=== PATIENT | female | born 1985 | race Two or more races ===

== ENCOUNTER 2024-10-30 18:03 | Emergency (ER) | payer MEDICAID, SELFPAY ==
[2024-10-30 18:04] VITALS: BMI 30.7
--- NOTE | 2024-10-30 18:09 | EKG_ITS ---
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
[2024-10-30 19:00] VITALS: BP 119/78; PULSE 93; RESP 18; TEMP 37.1; O2SAT 97
--- NOTE | 2024-10-30 19:20 | XR_ITS ---
Examination: PA lateral chest 2 views Technique: Upright PA lateral chest 2 views Exam date and time: October 30 2024 Indications: Chest pain today. Findings: Normal heart size Lungs are clear. The osseous structures are intact Impression: No active disease
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
== END 2024-10-30 21:45 | disposition home or self-care (01) ==
PROVIDERS: Emergency Provider Emergency Medicine; PCP Nurse Practitioner Family
DX: S20.219A Contusion of unspecified front wall of thorax, initial encounter (principal); F41.9 Anxiety disorder, unspecified; Y04.0XXA Assault by unarmed brawl or fight, initial encounter
CPT/HCPCS: 71046; 93005; 99283

== ENCOUNTER 2025-07-26 01:20 | Emergency (ER) | payer MEDICAID, SELFPAY ==
[2025-07-26 01:21] VITALS: BMI 31.4
[2025-07-26 01:27] VITALS: BP 116/74; PULSE 90; RESP 18; TEMP 36.6; O2SAT 98
--- NOTE | 2025-07-26 01:40 | XR_ITS ---
Examination: Complete OB ultrasound, less than 14 weeks, transabdominal Date and time of exam: July 26, 2025, 0207 hours INDICATIONS: Dizziness pelvic pain today Technique: Obstetrical ultrasound images less than 14 weeks performed via transabdominal imaging Findings: Uterus 13.1 cm CRL 6.8 cm corresponds to 13 weeks 0 days gestational age Cardiac motion 148 bpm Suspicious for abruption of the placenta posteriorly near the cervix measuring up to 4 mm in thickness Ovaries obscured by bowel gas Impression: Viable intrauterine gestation 13 weeks 0 days Suspicious for early placental abruption, recommend short-term follow-up pelvic sonography
--- NOTE | 2025-07-26 01:40 | PD.EDRME ---
Rapid Medical Screening Exam RME Arrival date/time: 07/26/25 01:20 This is a case of 40-year-old female with no medical history came in in the emergency room due to dizziness today patient is 13 weeks 8 para 7 1 miscarriage no abdominal pain no vaginal bleeding no vaginal discharge no nausea no vomitING Chief Complaint: Dizziness Time Seen by Provider: 07/26/25 01:22 Vital signs: Vital Signs Temperature 98 F 07/26/25 01:27 Pulse Rate 90 07/26/25 01:27 Respiratory Rate 18 07/26/25 01:27 Blood Pressure 116/74 07/26/25 01:27 Pulse Oximetry (%) 98 07/26/25 01:27 Oxygen Delivery Method Room Air 07/26/25 01:27 Exam: Abdominal exam no guarding no rebound no rigidity no tenderness Clinical Impression: Dizziness IN PREGANNCY
[2025-07-26 01:49] LABS: Collection Type, Urine Voided
[2025-07-26 01:56] LABS: Bacteria,Urine Rare; Bilirubin,Urine Negative (Negative); Blood,Urine Negative (Negative); Clarity,Urine Clear (Clear/Hazy); Color,Urine Colorless (Lt Yel-Yel); Glucose, Urine Negative (Negative); Ketones,Urine Negative (Negative); Leukocyte Esterase,Urine Negative (Negative); Nitrite,Urine Negative (Negative); PH,Urine 6.5 (5.0-7.0); Protein,Urine Negative (Neg - Trace); RBC,Urine 1 /hpf (0-3); Specific Gravity,Urine 1.003 (1.001-1.035); Squamous Epithelial Cell,Urine 1 /hpf (0-5); Urobilinogen,Urine Negative mg/dL (0.0-1.0); WBC,Urine < 1 /hpf (0-5)
[2025-07-26 02:10] LABS: Basophils # (Auto) 0.0 Thou/mm3 (0.0-0.2); Basophils % (Auto) 0 % (0-2.5); Eosinophils # (Auto) 0.1 Thou/mm3 (0.0-0.5); Eosinophils % (Auto) 1 % (0-10); Hematocrit 34.8 % (36.0-46.0); Hemoglobin 11.6 g/dL (12.0-16.0); Immature Granulocytes Auto 0.03 Thou/mm3 (0.00-0.00); Lymphocytes # (Auto) 2.2 Thou/mm3 (1.0-4.8); Lymphocytes % (Auto) 30 % (10-50); Mean Corpuscular HGB Conc 33.3 g/dl (31.0-37.0); Mean Corpuscular Hemoglobin 29.7 pg (25.0-35.0); Mean Corpuscular Volume 89 fL (80-100); Monocytes # (Auto) 0.5 Thou/mm3 (0.0-0.8); Monocytes % (Auto) 7 % (0-12); Neutrophils # (Auto) 4.6 Thou/mm3 (1.8-7.7); Neutrophils % (Auto) 61 % (37-80); Nucleated Red Blood Cell # 0.00 Thou/mm3 (0.00-0.00); Nucleated Red Blood Cell % 0 /100 WBC (0); Platelet Count 231 Thou/mm3 (140-440); RDW Standard Deviation 46.7 fL (36.4-46.3); Red Blood Count 3.91 Miln/mm3 (4.00-5.20); White Blood Count 7.5 Thou/mm3 (3.6-11.0)
[2025-07-26 02:31] LABS: Alanine Aminotransferase 20 U/L (10-49); Albumin, Serum 4.5 gm/dL (3.5-5.0); Albumin/Globulin Ratio 1.9 (1.2-2.2); Alkaline Phosphatase 90 U/L (46-116); Anion Gap 9 (7-16); Aspartate Amino Transferase 22 U/L (0-34); BUN/Creatinine Ratio 22 Ratio (12-20); Bilirubin,Total 0.2 mg/dL (0.3-1.2); Blood Urea Nitrogen 11 mg/dL (9-23); Calcium 9.5 mg/dL (8.3-10.6); Calcium (Corrected) 9.5 mg/dL (8.5-10.1); Carbon Dioxide 25.2 mMol/L (20.0-31.0); Chloride 107 mMol/L (98-107); Creatinine (Component) 0.5 mg/dL (0.6-1.3); Estimated Creatinine Clearance 160.1 mL/min (>60); Globulin 2.4 gm/dL (2.3-3.5); Glucose 120 mg/dL (74-106); Osmolality,Calculated 281 (275-295); Potassium 4.3 mMol/L (3.4-5.1); Sodium 141 mMol/L (136-145); Total Protein 6.9 gm/dL (5.7-8.2); eGFR > 60 See Note
[2025-07-26] MEDS: SODIUM CHLORIDE 0.9% 1000 ML 1,000 ML 999 ML IV (02:35)
[2025-07-26 02:36] VITALS: BP 102/69; PULSE 81; RESP 19; O2SAT 99
[2025-07-26 03:00] LABS: Beta HCG,Quantitative 7831 mIU/mL (<5.0)
--- NOTE | 2025-07-26 04:00 | PRELIM_ITS ---
Obstetric ultrasound (transabdominal). July 26, 2025 0207 hours Clinical history: vaginal bleeding Comparison: None Findings: Uterus is 13.1 x 11.8 x 5.3 cm. Intrauterine gestation is present, of concern for possible abruption of the inferior margin of the placenta near the cervix. The ovaries are not identified. pole is 6.8 cm long consistent with 13- weeks 0-day gestational age. heart rate is 148 bpm. The yolk sac is not demonstrated. No free fluid. Impression: Single live intrauterine gestation. Suspicious for abruption of the inferior placental margin. Discussion Details: Results verbally communicated to : Dr Viera at 03:49 AM 07/26/2025 Report Electronically Signed By: Grover Acevedo 07/26/2025 4:00:21 AM [EST]
--- NOTE | 2025-07-26 04:46 | EDNOTE_ITS ---
ED Dizzyness RME/HPI General Chief Complaint: Dizziness Stated Complaint: 13 WKS PREG DIZZINESS Time Seen by Provider: 07/26/25 01:22 Arrival date/time: 07/26/25 01:20 Limitations: no limitations RME / HPI RME / HPI Narrative: 07/26/25 01:20 This is a case of 40-year-old female with no medical history came in in the emergency room due to dizziness today patient is 13 weeks 8 para 7 1 miscarriage no abdominal pain no vaginal bleeding no vaginal discharge no nausea no vomitING ------ Dr. Draper's Main ED Evaluation: 40yo female A1 who is ~13 weeks gestation presents to the ED for a chief complaint of lightheadedness x 2 days. Patient states she has not been wanting to eat for the last 2 days, which is unusual for her. She notes feeling lightheaded, which she has not experienced with any of her pregnancies and was concerned, so she came in for evaluation. Patient denies any abdominal pain, vaginal bleeding/discharge, chest pain, palpitations, shortness of breath, or any other associated symptoms. NKA. WEB MANAGER: [place] Related Data Previous Rx's ?Medication ?Instructions ?Recorded dicyclomine 20 mg tablet 20 mg PO QID PRN abdominal p ain 02/23/24 #14 tabs ondansetron 4 mg disintegrating 4 mg PO TID PRN nausea and 02/23/24 tablet vomiting #14 tabs Allergies Allergy/AdvReac Type Severity Reaction Status Date / Time No Known Allergies Allergy Verified 07/26/25 01:24 Review of Systems Review of Systems Systems Reviewed: All systems reviewed, normal except as documented Past Medical History Past Medical History CARDIAC: Positive Hypotension; Negative Congestive Heart Failure RESPIRATORY: Negative Chronic Obstructive Pulmonary Disease (COPD) GENITOURINARY: Negative Renal Disease ENDOCRINE: Negative Diabetes Mellitus Type 1 or Diabetes Mellitus Type 2 PSYCHO/SOCIAL: Positive Anxiety Social History SMOKING STATUS: Never smoker ED Exam General Limitations: Present no limitations General appearance: Present alert, in no apparent distress and other (is able to sit up) Head Head exam: Present atraumatic Eye Eye exam: Present normal appearance, PERRL and EOMI ENT ENT exam: Present normal exam, normal oropharynx and mucous membranes moist Neck Neck exam: Present normal inspection, full ROM and trachea midline Chest Chest inspection: Present normal inspection and symmetric chest wall rise Respiratory Respiratory exam: Present normal lung sounds bilaterally Cardiovascular Cardiovascular exam: Present regular rate, normal rhythm and normal heart sounds Abdominal Exam Abdominal exam: Present soft and normal bowel sounds Extremities Exam Extremities exam: Present normal inspection and full ROM Back Exam Back exam: Present normal inspection and full ROM Neurological Exam Neurological exam: Present alert, oriented X3, CN II-XII intact and normal gait; Absent motor sensory deficit Expanded Neurological Exam Patient oriented to: Present person, place and time Cerebellar function: Normal: finger to nose Psychiatric Psychiatric exam: Present normal affect and normal mood Skin Skin exam: Present warm, dry, intact and normal color Course Quality Measures none Orders Category Date Time Status US OB <= 14 weeks fetus Stat Exams 07/26/25 01:40 Taken ABO/RH Type Stat Lab 07/26/25 01:57 Completed Beta HCG,Quantitative Stat Lab 07/26/25 01:57 Completed CBC Stat Lab 07/26/25 01:57 Completed CMP [Comprehensive Metabolic Panel] Stat Lab 07/26/25 01:57 Completed Urinalysis Stat Lab 07/26/25 01:35 Completed Sodium Chloride 0.9% 1000 ml [Ns] 1,000 ml Med 07/26/25 01:40 Discontinued IV 999 mls/hr Vital Signs Vital signs: Vital Signs Temperature 98 F 07/26/25 01:27 Pulse Rate 90 07/26/25 01:27 Respiratory Rate 18 07/26/25 01:27 Blood Pressure 116/74 07/26/25 01:27 Pulse Oximetry (%) 98 07/26/25 01:27 Oxygen Delivery Method Room Air 07/26/25 01:27 Dizziness MDM Narrative MDM Narrative:: Scribe Attestation: 07/26/25 Katty Barney am scribing for and in the presence of Dr. Draper. Patient data External records reviewed:: [facility] previous records (Per chart review, patient was seen here on 10/30/24 for anxiety.) Clinical information provided by:: patient Social determinants that could affect healthcare access:: none Patient has the following chronic illnesses:: none How is presenting disease/condition affected by chronic disease/condition?: no chronic disease Evaluation data The following diagnostics were reviewed and interpreted by me:: lab results and radiology exam(s) Lab and/or radiology exams considered but not ordered:: none Interpretation Summary: WBC normal, HnH 11.6/34.8, CMP normal, HCG 7831, UA unremarkable. Telerad Preliminary Report Draft Patient: LETICIA CRABTREE Record#: [id number] Birthdate: 1985 Age/Sex: 40 / F [facility]: Ordering Physician: Date of Service: Procedure(s): Accession Number(s): cc: ~ Obstetric ultrasound (transabdominal). July 26, 2025 0207 hours Clinical history: vaginal bleeding Comparison: None Findings: Uterus is 13.1 x 11.8 x 5.3 cm. Intrauterine gestation is present, of concern for possible abruption of the inferior margin of the placenta near the cervix. The ovaries are not identified. pole is 6.8 cm long consistent with 13- weeks 0-day gestational age. heart rate is 148 bpm. The yolk sac is not demonstrated. No free fluid. Impression: Single live intrauterine gestation. Suspicious for abruption of the inferior placental margin. Discussion Details: Results verbally communicated to : Dr Viera at 03:49 AM 07/26/2025 Report Electronically Signed By: Groevr Acevedo 07/26/2025 4:00:21 AM Medications / Prescriptions Medications or Prescriptions considered but not ordered:: none Medication administrations:: Medication Administration History Discontinued Medications Sodium Chloride (Ns) 1,000 mls @ 999 mls/hr IV .Q1H1M ONE Stop: 07/26/25 02:40 Last Infusion: 07/26/25 03:37 Dose: Infused Documented By: Admin: 07/26/25 02:35 Dose: 999 mls/hr Documented By: GIRISH see above Consultations Consultation(s) initiated? (list below): Yes Consultation #1 (Physician, Specialty, Details): Discussed case with Dr. Porter from WEB MANAGER regarding consultation. Discussed patients ED course, exam findings, labs, and radiology results. Recommends having the patient follow-up with him in his office tomorrow afternoon. Time: 04:57 Diagnosis Dizziness Differential Diagnosis: other (UTI, dehydration, electrolyte abnormality, doubt abruption) Most likely diagnosis given after review of the tests above:: see clinical impression below Admission Indicated Admission indicated?: not indicated Admission Request Was there a request for admission?: No Disposition Plan Disposition Plan: Discharge Discharge Attestation Discharge Attestation: The patient and all family members were given an opportunity to ask questions a nd understood the discharge instructions. Discharge instructions specifically effects, indications for sooner follow up or return to the emergency department, and the expected course of current diagnosis. Patient condition: Stable Discharge Plan Plan Patient Disposition: HOME (Self Care) Patient condition on transfer: Stable Prescriptions/Referrals Prescriptions/Med Rec: No Action dicyclomine 20 mg tablet 20 mg PO QID PRN (Reason: abdominal pain) Qty: 14 0RF ondansetron 4 mg tablet,disintegrating 4 mg PO TID PRN (Reason: nausea and vomiting) Qty: 14 0RF Referrals: Burak Porter MD [Physician, WEB MANAGER] - 07/27/25 1:00 pm No Primary/Family,Physician [Primary Care Provider] - In 1 week Problem List Clinical Impression: Light-headed Patient/Caregiver Discharge Instructions Education Materials: ED Dizziness, Uncertain Cause Additional Instructions: Please try to eat some foods to keep you with necessary carbs so that you do not get lightheaded like oatmeal, smoothies, bananas, etc. I spoke to Dr Porter and he will see you tomorrow Saturday at 1 PM. Return immediately to to the emergency department or call [phone] if you have any vaginal bleeding, abdominal pain, you feel like going to pass out, or any other concerns. Print Language: Algerian Stand Alone Forms: Gaby Award Info., Patient Portal Info Letter
== END 2025-07-26 05:12 | disposition home or self-care (01) ==
PROVIDERS: Nurse Practitioner Family; Emergency Provider Emergency Medicine
DX: O99.891 Other specified diseases and conditions complicating pregnancy (principal); R42 Dizziness and giddiness; R10.20 Pelvic and perineal pain unspecified side; Z3A.13 13 weeks gestation of pregnancy
CPT/HCPCS: 36415; 76801; 80053; 81001; 84702; 85025; 86900; 86901; 96360; 99283; J7030